=== PATIENT | female | born 1955 | race Caucasian/White ===

== ENCOUNTER → 2018-04-18 | Outpatient (CLI) | payer OTHER ==
[~2018-04-18] MED LIST: ACHD5005 PO; AMLO10TA82 PO; ATEN-155 PO; CARV25TA PO; CELE50CA PO; CLON0.5T3 PO; CYAN10007 PO; CYCL10TA9 PO; D50KC PO; DICL50TA4 PO; DULO60CA6 PO; GBPN100C PO; LIRA0.6P SQ; MELO-195 PO; MTF500T PO; MULT-608 PO
--- NOTE | 2018-04-18 11:57 | Diagnostic Imaging Report ---
INDICATION: Fall with trauma to the chest. Left-sided chest pain. COMPARISON: None. FINDINGS: Frontal radiographic view of the chest demonstrates normal cardiac silhouette and pulmonary vasculature. Lungs are clear. There is no focal consolidation, large effusion, nor pneumothorax. Three dedicated radiographic views of the left ribs were obtained. No healing or displaced left-sided rib fractures are identified. No other gross acute osseous abnormalities are identified. IMPRESSION: 1. No acute cardiopulmonary process. 2. No healing or displaced left-sided rib fractures. Dictated by: Dictated on workstation # [id number]
== END ==
LOC: RAD 10:39
PROVIDERS: ATTEND Internal Medicine
DX: S29.9XXA Unspecified injury of thorax, initial encounter (principal); W19.XXXA Unspecified fall, initial encounter
CPT/HCPCS: 71101

== ENCOUNTER → 2019-10-25 | Outpatient (CLI) | payer OTHER ==
--- NOTE | 2019-10-25 13:52 | Diagnostic Imaging Report ---
INDICATION: Routine screening. COMPARISON: Comparison is made with prior mammogram from 06/25/2010. 2-D and 3-D bilateral screening mammography was performed. The current study was also evaluated with a Computer Aided Detection (CAD) system. 3-D tomosynthesis was also performed and reviewed. FINDINGS: Scattered fibroglandular densities are identified bilaterally. Asymmetric fibroglandular tissue in the outer left breast anterior depth appears stable. There are benign calcifications bilaterally. No dominant mass or malignant-appearing microcalcifications are seen. The axillae are unremarkable. IMPRESSION: No mammographic features suspicious for malignancy are identified. ACR BI-RADS Category 2: Benign findings. Result letter will be mailed to the patient. Note: At least 10% of breast cancer is not imaged by mammography. Dictated by: Dictated on workstation # [id number]
== END ==
LOC: RAD 10:29
PROVIDERS: ATTEND Internal Medicine
DX: Z12.31 Encounter for screening mammogram for malignant neoplasm of breast (principal)
CPT/HCPCS: 77067

== ENCOUNTER → 2020-10-27 | Outpatient (CLI) | payer OTHER ==
--- NOTE | 2020-10-27 10:34 | Diagnostic Imaging Report ---
INDICATION: Routine screening. COMPARISON: 10/25/2019. TECHNIQUE: 2D and 3D bilateral screening mammography was performed with CAD. FINDINGS: Scattered fibroglandular densities are identified bilaterally. The parenchymal asymmetry in the anterior and lateral left breast appears stable. There are benign calcifications in both breasts. No mass or malignant appearing microcalcifications are seen. The axillae are unremarkable. IMPRESSION: No mammographic features suspicious for malignancy are identified. ACR BI-RADS Category 2: Benign findings. Result letter will be mailed to the patient. Note: At least 10% of breast cancer is not imaged by mammography. Dictated by: Dictated on workstation # [id number]
== END ==
LOC: RAD 08:15
PROVIDERS: ATTEND Internal Medicine
DX: Z12.31 Encounter for screening mammogram for malignant neoplasm of breast (principal)
CPT/HCPCS: 77063; 77067

== ENCOUNTER → 2022-03-12 | Outpatient (CLI) | payer OTHER ==
[~2022-03-12] VITALS: Ht 170 cm; Wt 122.0 kg
[~2022-03-12] MED LIST changes: +REGADENOSON 0.4 MG/5 ML SYR (LEXISCAN) IV ONE
[2022-03-12] MEDS: CATHETER FLUSH 10 ML SYR IVP PRN ×2 (06:57→08:12)
[2022-03-12 08:03] VITALS: BP 154/102
--- NOTE | 2022-03-12 10:26 | Cardiology Stress Test Report ---
Stress Test Report Date of Procedure/Referring: Date of Procedure: Mar 12, 2022 PCP Naveen Azul DO Admitting Physician Admitting Physician: Attending Physician: Naveen Azul DO Indications: Palp Baseline Vital Signs Vital Signs Date Time Temp Pulse Resp B/P (MAP) Pulse Ox O2 Delivery O2 Flow Rate FiO2 03/12/22 08:03 70 16 154/102 (119) 98 Room Air Summary: Patient receive a resting and stress dose of Myoview, images were acquired and reviewed in the short axis view, horizontal long axis view and vertical long axis view. TID: 1.19 SSS: 20 SDS: 13 EF: 65 1. Normal left ventricular size and systolic function ejection fraction 65% 2. Reversible ischemia involving the inferior wall, inferolateral wall and inferoseptum 3. Transient ischemic dilatation 1.19 Copy Copies To 1: NAVEEN AZUL BASHAR J MD Mar 12, 2022 10:25
== END ==
LOC: CARD 07:00
PROVIDERS: ATTEND Internal Medicine
DX: R00.2 Palpitations (principal); R42 Dizziness and giddiness
CPT/HCPCS: 78452; 93017; A9502

== ENCOUNTER → 2022-09-05 | Outpatient (CLI) | payer OTHER ==
[~2022-09-05] MED LIST changes: -REGADENOSON 0.4 MG/5 ML SYR (LEXISCAN) IV ONE
--- NOTE | 2022-09-05 13:11 | Diagnostic Imaging Report ---
Indication: Left hand injury with pain and swelling. Comparison: None. Discussion: Three views of the left hand were obtained. Moderate polyarticular degenerative disease noted. No displaced fracture or dislocation. Alignment is anatomic. No erosion or soft tissue calcifications. Soft tissues are unremarkable. No foreign body. Impression: 1. 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 No fracture. Dictated by: Dictated on workstation # [id number]
== END ==
LOC: RAD 12:49
PROVIDERS: ATTEND Nurse Practitioner Family
DX: M19.042 Primary osteoarthritis, left hand (principal); M19.032 Primary osteoarthritis, left wrist; S69.92XA Unspecified injury of left wrist, hand and finger(s), initial encounter; X58.XXXA Exposure to other specified factors, initial encounter
CPT/HCPCS: 73130